=== PATIENT | female | born 2000 | race Caucasian/White ===

== ENCOUNTER 2020-07-21 16:14 | Emergency (ER) | payer SELFPAY ==
--- OUTSIDE RECORDS SUMMARY | 2020-07-21 16:17 | XMS REPORT | Continuity of Care Document ---
:2000 Author Organization [facility] t Address [address] [place] [address] Care Team Providers Name Role Phone Arcadio Baldwin DO Attending Clinician Vls-Lab Attending Clinician Unavailable Clifton Coronado Attending Clinician Problems This patient has no known problems. Allergies, Adverse Reactions, Alerts This patient has no known allergies or adverse reactions. Medications This patient has no known medications. Procedures This patient has no known procedures. Encounters Start End Encounter Admission Attending Care Care Encounter Source Date/Time Date/Time Type Type Clinicians Facility Department ID 2020-06-04 2020-06-04 Patient SARAI Baldwin [id number] 00:00:00 00:00:00 Outreach [place] PR[facility] [id number] Tank CARE [id number] READING [id number] 2020-05-30 2020-05-30 [place] Operator Vls-Lab [facility] [id number] 12:36:03 12:51:03 Visit SPECIALTY [id number] CARE [id number] [facility] [id number] OTILIA HART 2020-05-20 2020-05-20 Office SARAI Lewis [id number] 10:08:13 10:38:13 Visit Masha [facility] [id number] Cancer [id number] [place] - [phone] MDA 204 Results This patient has no known results.
[2020-07-21] MEDS ORDERED: DIPHENHYDRAMINE 50 MG/ML VIAL ONE (17:14)
[2020-07-21] MEDS ORDERED: METHYLPREDNISOLONE 125 MG INJ ONE (17:14)
[2020-07-21] MEDS ORDERED: NA CHLORIDE 0.9% 1,000 ML ONE (17:15)
[2020-07-21] MEDS ORDERED: predniSONE 20 MG TAB ONE (17:15)
[2020-07-21] MEDS ORDERED: FAMOTIDINE 20 MG/2 ML VIAL IV ONE (17:15)
--- NOTE | 2020-07-21 17:16 | EDPHYS ---
Physician Documentation [facility] Name: Jackie Willis Age: 19 yrs Sex: Female : 2000 Arrival Date: 07/21/2020 Time: 16:17 Bed 2 Private MD: ED Physician Conor Quiles HPI: 07/21 16:52 This 19 yrs old Female presents to ER via Ambulatory with complaints of shannan Allergic Reaction. 16:52 The patient presents with itching. Onset: The symptoms/episode began/occurred just shannan prior to arrival. Associated signs and symptoms: Pertinent positives: light headed. Possible causes: lotin. At home the patient or guardian has treated the symptoms with Benadryl. Severity of symptoms: At their worst the symptoms were mild in the emergency department the symptoms are unchanged. The patient has not experienced similar symptoms in the past. Historical: - Allergies: 16:38 No Known Allergies; bp - Home Meds: 16:38 None [Active]; bp - PMHx: 16:38 None; bp - Immunization history:: Adult Immunizations up to date. - Social history:: Smoking status: Patient denies any tobacco usage or history of. ROS: 16:53 Constitutional: Negative for fever, chills, and weight loss, Eyes: Negative for injury, shannan pain, redness, and discharge, ENT: Negative for injury, pain, and discharge, Neck: Negative for injury, pain, and swelling, Cardiovascular: Negative for chest pain, palpitations, and edema, Respiratory: Negative for shortness of breath, cough, wheezing, and pleuritic chest pain, Abdomen/GI: Negative for abdominal pain, nausea, vomiting, diarrhea, and constipation, Back: Negative for injury and pain, : Negative for injury, bleeding, discharge, and swelling, MS/Extremity: Negative for injury and deformity, Neuro: Negative for headache, weakness, numbness, tingling, and seizure, Psych: Negative for depression, anxiety, suicide ideation, homicidal ideation, and hallucinations, Allergy/Immunology: Negative for hives, rash, and allergies, Endocrine: Negative for neck swelling, polydipsia, polyuria, polyphagia, and marked weight changes. 16:53 Skin: Positive for rash. Exam: 16:53 Constitutional: This is a well developed, well nourished patient who is awake, alert, shannan and in no acute distress. Head/Face: Normocephalic, atraumatic. Eyes: Pupils equal round and reactive to light, extra-ocular motions intact. Lids and lashes normal. Conjunctiva and sclera are non-icteric and not injected. Cornea within normal limits. Periorbital areas with no swelling, redness, or edema. ENT: Nares patent. No nasal discharge, no septal abnormalities noted. Tympanic membranes are normal and external auditory canals are clear. Oropharynx with no redness, swelling, or masses, exudates, or evidence of obstruction, uvula midline. Mucous membranes moist. Neck: Trachea midline, no thyromegaly or masses palpated, and no cervical lymphadenopathy. Supple, full range of motion without nuchal rigidity, or vertebral point tenderness. No Meningismus. Chest/axilla: Normal chest wall appearance and motion. Nontender with no deformity. No lesions are appreciated. Cardiovascular: Regular rate and rhythm with a normal S1 and S2. No gallops, murmurs, or rubs. Normal PMI, no JVD. No pulse deficits. Respiratory: Lungs have equal breath sounds bilaterally, clear to auscultation and percussion. No rales, rhonchi or wheezes noted. No increased work of breathing, no retractions or nasal flaring. Abdomen/GI: Soft, non-tender, with normal bowel sounds. No distension or tympany. No guarding or rebound. No evidence of tenderness throughout. Back: No spinal tenderness. No costovertebral tenderness. Full range of motion. Skin: Warm, dry with normal turgor. Normal color with no rashes, no lesions, and no evidence of cellulitis. MS/ Extremity: Pulses equal, no cyanosis. Neurovascular intact. Full, normal range of motion. Neuro: Awake and alert, GCS 15, oriented to person, place, time, and situation. Cranial nerves II-XII grossly intact. Motor strength 5/5 in all extremities. Sensory grossly intact. Cerebellar exam normal. Normal gait. Psych: Awake, alert, with orientation to person, place and time. Behavior, mood, and affect are within normal limits. 16:53 Musculoskeletal/extremity: DVT Exam: No signs of deep vein thrombosis. no pain, no swelling, no tenderness, negative Homans' sign noted on exam, no appreciated bluish discoloration, no erythema, no increased warmth. Vital Signs: 16:36 BP 130 / 86; Pulse 77; Resp 19; Temp 97.4; Pulse Ox 99% ; Weight 83.91 kg; Height 5 ft. bp 7 in. (170.18 cm); 16:36 Body Mass Index 28.97 (83.91 kg, 170.18 cm) bp MDM: 16:44 Patient medically screened. shannan Administered Medications: 17:09 Drug: Pepcid (famotidine) 40 mg Route: IVP; Site: left antecubital; sv 17:59 Follow up: Response: No adverse reaction; Marked relief of symptoms ss 17:09 Drug: SOLU-Medrol (methylPrednisoLONE) 125 mg Route: IVP; Site: left antecubital; sv 17:59 Follow up: Response: No adverse reaction; Marked relief of symptoms ss 17:09 Drug: predniSONE 40 mg Route: PO; sv 17:58 Follow up: Response: No adverse reaction; Marked relief of symptoms ss 17:10 Drug: NS 0.9% 1000 ml Route: IV; Rate: 1 bolus; Site: left antecubital; sv 17:59 Follow up: IV Status: Completed infusion; IV Intake: 1000ml ss 17:10 Drug: Benadryl (diphenhydrAMINE) 50 mg Route: IVP; Site: left antecubital; sv 17:59 Follow up: Response: No adverse reaction; Marked relief of symptoms ss Disposition: 07/21/20 17:15 Discharged to Home. Impression: Allergic contact dermatitis, Allergic contact dermatitis, unspecified cause. - Condition is Stable. - Discharge Instructions: Contact Dermatitis, Rash, Rash, Zrjz-ch-Wemu, Contact Dermatitis, Ccjo-zs-Krve, Allergies, Aurm-ww-Vcue. - Prescriptions for Hydroxyzine HCl 50 mg Oral Tablet - take 1 tablet by ORAL route every 8 hours As needed; 20 tablet. Pepcid 20 mg Oral Tablet - take 1 tablet by ORAL route every 12 hours for 10 days; 20 tablet. Prednisone 20 mg Oral Tablet - take 2 tablet by ORAL route once daily for 5 days; 10 tablet. EpiPen 0.3 mg Injection auto- injector - inject 1 pen by INTRAMUSCULAR route one time Inject into the outer portion of the thigh, through clothing if necessary. Indicated in the emergency treatment of allergic reactions; 1 Cartridge. - Medication Reconciliation Form, Thank You Letter, Antibiotic Education, Prescription Opioid Use, Work release form, Family Work Release form. - Follow up: Private Physician; When: 1 - 2 days; Reason: Recheck today's complaints, Continuance of care, Re-evaluation by your physician. - Problem is new. - Symptoms have improved. Signatures: Bisi Carrizales, RN RN Conor Bar MD MD cha Smirch, Shelby, RN RN ss Enoc Chacon RN RN bp Corrections: (The following items were deleted from the chart) 17:58 17:15 07/21/2020 17:15 Discharged to Home. Impression: Allergic contact dermatitis; ss Allergic contact dermatitis, unspecified cause. Condition is Stable. Discharge Instructions: Contact Dermatitis, Rash, Rash, Upcv-vl-Qhil, Contact Dermatitis, Jcvm-ic-Rymt, Allergies, Esai-zh-Wpnk. Prescriptions for Hydroxyzine HCl 50 mg Oral Tablet - take 1 tablet by ORAL route every 8 hours As needed; 20 tablet, Pepcid 20 mg Oral Tablet - take 1 tablet by ORAL route every 12 hours for 10 days; 20 tablet, Prednisone 20 mg Oral Tablet - take 2 tablet by ORAL route once daily for 5 days; 10 tablet, EpiPen 0.3 mg Injection auto-injector - inject 1 pen by INTRAMUSCULAR route one time Inject into the outer portion of the thigh, through clothing if necessary. Indicated in the emergency treatment of allergic reactions; 1 Cartridge. and Forms are Medication Reconciliation Form, Thank You Letter, Antibiotic Education, Prescription Opioid Use. Follow up: Private Physician; When: 1 - 2 days; Reason: Recheck today's complaints, Continuance of care, Re-evaluation by your physician. Problem is new. Symptoms have improved. shannan
--- NOTE | 2020-07-21 17:16 | ER ---
Nurse's Notes [facility] Name: Jackie Willis Age: 19 yrs Sex: Female : 2000 Arrival Date: 07/21/2020 Time: 16:17 Bed 2 Private MD: Diagnosis: Allergic contact dermatitis;Allergic contact dermatitis, unspecified cause Presentation: 07/21 16:36 Chief complaint: Patient states: GLOBAL URTICARIA AFTER USING NEW LOTION. Coronavirus bp screen: At this time, the client does not indicate any symptoms associated with coronavirus-19. Ebola Screen: No symptoms or risks identified at this time. Onset: The symptoms/episode began/occurred suddenly, 30 minute(s) ago. Anaphylaxis evaluation, no signs or symptoms of anaphylaxis were noted. Initial Sepsis Screen: Does the patient meet any 2 criteria? No. Patient's initial sepsis screen is negative. Does the patient have a suspected source of infection? No. Patient's initial sepsis screen is negative. Risk Assessment: Do you want to hurt yourself or someone else? Patient reports no desire to harm self or others. Onset of symptoms was July 21, 2020 at 16:00. 16:36 Method Of Arrival: Ambulatory bp 16:36 Acuity: LESTER 3 bp Triage Assessment: 16:38 General: Appears distressed, uncomfortable, Behavior is cooperative, appropriate for bp age, anxious. Pain: Denies pain. EENT: No deficits noted. Neuro: Level of Consciousness is awake, alert, obeys commands, Oriented to Appropriate for age. Cardiovascular: No deficits noted. Respiratory: Airway is patent Respiratory effort is even, unlabored, Respiratory pattern is regular, symmetrical. GI: No signs and/or symptoms were reported involving the gastrointestinal system. : No signs and/or symptoms were reported regarding the genitourinary system. Derm: No deficits noted. Musculoskeletal: No deficits noted. Historical: - Allergies: 16:38 No Known Allergies; bp - Home Meds: 16:38 None [Active]; bp - PMHx: 16:38 None; bp - Immunization history:: Adult Immunizations up to date. - Social history:: Smoking status: Patient denies any tobacco usage or history of. Screenin:41 Abuse screen: Denies threats or abuse. Denies injuries from another. Nutritional sv screening: No deficits noted. Tuberculosis screening: No symptoms or risk factors identified. Fall Risk None identified. Assessment: 17:07 General: Appears in no apparent distress. uncomfortable, well groomed, well developed, sv Behavior is cooperative, restless. Pain: Denies pain. Neuro: Level of Consciousness is awake, alert, obeys commands, Oriented to person, place, time, situation, Moves all extremities. Full function Gait is steady, Speech is normal. Respiratory: Airway is patent Respiratory effort is even, unlabored, Respiratory pattern is regular, symmetrical. Derm: Skin is Pt has a sunburn all over her body. Pt placed new lotion on her sunburn to help ease the pain and then started having a reaction to it. She took a couple of baths with no relief. Musculoskeletal: Range of motion: intact in all extremities. 17:45 Reassessment: Patient appears in no apparent distress at this time. Patient and/or ss family updated on plan of care and expected duration. Pain level reassessed. Patient is alert, oriented x 3, equal unlabored respirations, skin warm/dry/pink. Patient denies pain at this time. Patient states feeling better. Patient states symptoms have improved. Respiratory: Respiratory effort is even, unlabored. Vital Signs: 16:36 BP 130 / 86; Pulse 77; Resp 19; Temp 97.4; Pulse Ox 99% ; Weight 83.91 kg; Height 5 ft. bp 7 in. (170.18 cm); 16:36 Body Mass Index 28.97 (83.91 kg, 170.18 cm) bp ED Course: 16:17 Patient arrived in ED. bg2 16:38 Triage completed. bp 16:38 Arm band placed on. bp 16:41 Bisi Carrizales, RN is Primary Nurse. sv 16:41 Patient has correct armband on for positive identification. Bed in low position. Call sv light in reach. Door closed. Head of bed elevated. 16:44 Conor Quiles MD is Attending Physician. shannan 17:07 Inserted saline lock: 20 gauge in left antecubital area, using aseptic technique. sv Flushed left antecubital with 2 ml normal saline. 17:57 No provider procedures requiring assistance completed. IV discontinued, intact, ss bleeding controlled, No redness/swelling at site. Pressure dressing applied. Administered Medications: 17:09 Drug: Pepcid (famotidine) 40 mg Route: IVP; Site: left antecubital; sv 17:59 Follow up: Response: No adverse reaction; Marked relief of symptoms ss 17:09 Drug: SOLU-Medrol (methylPrednisoLONE) 125 mg Route: IVP; Site: left antecubital; sv 17:59 Follow up: Response: No adverse reaction; Marked relief of symptoms ss 17:09 Drug: predniSONE 40 mg Route: PO; sv 17:58 Follow up: Response: No adverse reaction; Marked relief of symptoms ss 17:10 Drug: NS 0.9% 1000 ml Route: IV; Rate: 1 bolus; Site: left antecubital; sv 17:59 Follow up: IV Status: Completed infusion; IV Intake: 1000ml ss 17:10 Drug: Benadryl (diphenhydrAMINE) 50 mg Route: IVP; Site: left antecubital; sv 17:59 Follow up: Response: No adverse reaction; Marked relief of symptoms ss Intake: 17:59 IV: 1000ml; Total: 1000ml. ss Outcome: 17:15 Discharge ordered by MD. campbell 17:57 Discharged to home ambulatory, with family. ss 17:57 Condition: good 17:57 Discharge instructions given to patient, family, Instructed on discharge instructions, follow up and referral plans. medication usage, Demonstrated understanding of instructions, follow-up care, medications, Prescriptions given X 4. 17:58 Patient left the ED. ss Signatures: Bisi Carrizales, RN Conor Penaloza MD MD cha Smirch, Shelby, RN RN ss Glass, Brittany [facility] Enoc Chacon RN RN bp
[2020-07-21 18:05] VITALS: BP 130/86; TEMP 97.4; O2SAT 99
== END 2020-07-21 17:58 | disposition home or self-care (01) ==
LOC: ER 16:14
DX: L23.9 Allergic contact dermatitis, unspecified cause (principal)
CPT/HCPCS: 96361; 96374; 96375; 99283; J1200; J2930; J7030; J7512

== ENCOUNTER 2021-06-30 15:36 | Inpatient (IN) | payer OTHER, SELFPAY ==
[2021-06-30] MEDS ORDERED: MECLIZINE HCL 12.5 MG TAB ONE (16:51)
[2021-06-30] MEDS ORDERED: ONDANSETRON 4 MG (ODT) TAB ONE (17:17)
[2021-06-30] MEDS ORDERED: ONDANSETRON 4 MG/2 ML VIAL ONE ×2 (17:52→20:06)
[2021-06-30] MEDS ORDERED: LORazepam 2 MG/ML VIAL ONE (17:52)
[2021-06-30 18:36] LABS: Absolute Lymphocytes (CBC) 2.4 K/uL (0.7-4.9); Hematocrit 35.9 % (36.0-45.0); Lymphocytes % 27.2 % (15.3-44.8); MPV 7.9 fL (7.6-11.3); RBC Red Blood Cell Count 3.95 M/uL (3.86-4.86)
[2021-06-30 18:49] LABS: Potassium 3.8 mmol/L (3.5-5.1)
--- NOTE | 2021-06-30 19:19 | RAD REPORT ---
EXAM DESCRIPTION: CT - Head Brain Wo Cont - 06/30/2021 6:58 pm CLINICAL HISTORY: Dizziness, non-specific Headache, drowsiness COMPARISON: <Comparisons> TECHNIQUE: All CT scans are performed using dose optimization technique as appropriate and may inclu de automated exposure control or mA/KV adjustment according to patient size. FINDINGS: No intracranial hemorrhage, hydrocephalus or extra-axial fluid collection.No areas of brai n edema or evidence of midline shift. The paranasal sinuses and mastoids are clear. The calvarium is intact. IMPRESSION: No acute intracranial abnormality.
[2021-06-30] MEDS ORDERED: DIAZEPAM 10 MG/2 ML INJ SYRINGE ONE (20:06)
--- NOTE | 2021-06-30 20:35 | RAD REPORT ---
EXAM DESCRIPTION: CT - Head angio - 06/30/2021 8:28 pm CLINICAL HISTORY: Dizzy and blurry vision Headache, drowsiness COMPARISON: Head Brain Wo Cont dated 06/30/2021 TECHNIQUE: CT angiography of the head was performed with MIPs. All CT scans are performed using dose optimization technique as appropriate and may include automated exposure control or mA/KV adjustment according to patient size. FINDINGS: No evidence of aneurysm is detected. No flow-limiting stenosis or vascular malformation id entified. Antegrade flow is seen in the vertebral arteries. The vertebral arteries are codominant. The visualized dural venous sinuses are patent. IMPRESSION: No significant flow abnormality is detected.
--- NOTE | 2021-06-30 21:23 | EDPHYS ---
Physician Documentation [facility] Name: Jackie Willis Age: 20 yrs Sex: Female : 2000 Arrival Date: 06/30/2021 Time: 15:38 Bed 8 Private MD: ED Physician Hussein Triana HPI: 06/30 16:46 This 20 yrs old Female presents to ER via Ambulatory with complaints of Blurred Vision, ms3 Nausea. 16:46 The patient presents to the emergency department with nausea. Onset: The ms3 symptoms/episode began/occurred acutely, today. Possible causes: unknown. The symptoms are aggravated by movement, The symptoms are alleviated by nothing. Associated signs and symptoms: Pertinent positives: nausea, Pertinent negatives: vomiting. Severity of symptoms: At their worst the symptoms were moderate in the emergency department the symptoms are unchanged Pain is currently a 3 / 10. Historical: - Allergies: 16:12 No Known Allergies; ph - PMHx: 16:12 Depressive disorder; ph - Immunization history:: Adult Immunizations unknown. - Social history:: Smoking status: Patient denies any tobacco usage or history of. ROS: 16:46 Constitutional: Negative for fever, and chills. Neck: Negative for injury, pain, and ms3 swelling, Cardiovascular: Negative for chest pain, and palpitations. Respiratory: Negative for shortness of breath, cough, wheezing, and pleuritic chest pain, MS/Extremity: Negative for injury and deformity, Skin: Negative for injury, rash, and discoloration. 16:46 Abdomen/GI: Positive for nausea, Negative for vomiting. 16:46 Neuro: Positive for dizziness. 16:46 All other systems are negative. Exam: 16:46 Constitutional: This is a well developed, well nourished patient who is awake, alert, ms3 and in no acute distress. Head/Face: Normocephalic, atraumatic. Neck: Trachea midline, no cervical lymphadenopathy. Supple, full range of motion without nuchal rigidity, or vertebral point tenderness. No Meningismus. Chest/axilla: Normal chest wall appearance and motion. Nontender with no deformity. Cardiovascular: Regular rate and rhythm with a normal S1 and S2. No gallops, murmurs, or rubs. Normal PMI, no JVD. No pulse deficits. Respiratory: Lungs have equal breath sounds bilaterally, clear to auscultation and percussion. No rales, rhonchi or wheezes noted. No increased work of breathing, no retractions or nasal flaring. Abdomen/GI: Soft, non-tender, with normal bowel sounds. No distension or tympany. No guarding or rebound. No evidence of tenderness throughout. MS/ Extremity: Pulses equal, no cyanosis. Neurovascular intact. Full, normal range of motion. Psych: Awake, alert, with orientation to person, place and time. Behavior, mood, and affect are within normal limits. 16:46 Neuro: Orientation: is normal, Mentation: is normal, Memory: is normal, Cranial nerves: grossly normal, Cerebellar function: is grossly normal, Motor: is normal, Sensation: is normal, Positive [place]. 18:31 ECG was reviewed by the Attending Physician. ms3 Vital Signs: 16:10 BP 127 / 78; Pulse 71; Resp 18; Temp 98.1; Pulse Ox 100% on R/A; Weight 88.45 kg; ph Height 5 ft. 7 in. (170.18 cm); 16:41 BP 127 / 74; Pulse 71; Pulse Ox 100% on R/A; ap3 18:38 BP 119 / 87; Pulse 60; Resp 17; Pulse Ox 100% ; Pain 2/10; jh6 21:06 BP 140 / 82; Pulse 63; Resp 16 S; Pulse Ox 99% ; Pain 0/10; ag7 22:00 BP 136 / 98; Pulse 65; Resp 16 S; Pulse Ox 99% on R/A; Pain 0/10; ag7 16:10 Body Mass Index 30.54 (88.45 kg, 170.18 cm) ph Visual Acuity: 21:05 Left Eye Visual acuity 20/50, Pupil size 3 mm, React To Light; Right Eye Visual acuity ag7 20/50, Pupil size 3 mm, React To Light; Both Eyes Visual acuity 20/50; With Lenses; MDM: 16:46 Patient medically screened. ms3 16:46 Differential diagnosis: BPV vs Nausea. ms3 18:22 ED course: Despite Antivert, Zofran, and Ativan patient states she is still having ms3 dizziness. Patient states the counter in the room is sloping. Will obtain CT head and labs.. 19:28 Transition of care: After a detail discussion of the patient's case, care is ms3 transferred to Hussein Triana MD. 21:22 Data reviewed: vital signs, nurses notes, lab test result(s), radiologic studies. kdr Counseling: I had a detailed discussion with the patient and/or guardian regarding: the historical points, exam findings, and any diagnostic results supporting the discharge/admit diagnosis, lab results, radiology results, the need for further work-up and treatment in the hospital. Physician consultation: Chris Terrazas MD regarding consult, patient's condition, and will see patient in inpatient room, tomorrow, Suggested a MRI brain in the a.m.. 06/30 18:22 Order name: Basic Metabolic Panel; Complete Time: 19:05 ms3 06/30 18:22 Order name: CBC with Diff; Complete Time: 19:05 ms3 06/30 18:22 Order name: CT Head Brain wo Cont; Complete Time: 19:35 ms3 06/30 19:51 Order name: CT Head Angio; Complete Time: 20:44 kdr 06/30 22:38 Order name: COVID-19/FLU A+B (Document "Date of Onset" if Symptomatic) mw2 07/01 00:29 Order name: COVID-19/FLU A+B EDMS 06/30 18:22 Order name: EKG; Complete Time: 18:23 ms3 06/30 18:22 Order name: Cardiac monitoring; Complete Time: 18:37 ms3 06/30 18:22 Order name: EKG - Nurse/Tech; Complete Time: 18:46 ms3 06/30 18:22 Order name: IV Saline Lock; Complete Time: 18:37 ms3 06/30 18:22 Order name: Labs collected and sent; Complete Time: 18:37 ms3 06/30 18:22 Order name: NPO; Complete Time: 18:37 ms3 06/30 18:22 Order name: O2 Per Protocol; Complete Time: 18:37 ms3 06/30 18:22 Order name: O2 Sat Monitoring; Complete Time: 18:37 ms3 06/30 18:22 Order name: Stroke Swallow Screen; Complete Time: 18:38 ms3 06/30 19:51 Order name: Visual Acuity; Complete Time: 21:26 kdr EC:31 Rate is 58 beats/min. Rhythm is regular. QRS Covert is Normal. VT interval is normal. ms3 Clinical impression: Sinus bradycardia. Interpreted by me. Administered Medications: 16:51 Drug: Meclizine 50 mg Route: PO; jh6 17:30 Drug: Zofran (Ondansetron) 4 mg Route: PO; jh6 17:55 Drug: Zofran (Ondansetron) 4 mg Route: IVP; Site: right antecubital; jh6 17:56 Drug: Ativan (LORazepam) 1 mg Route: IVP; Site: right antecubital; jh6 20:21 Drug: Valium (diazepam) 5 mg Route: IVP; Site: right antecubital; ag7 20:51 Follow up: Response: No adverse reaction; No change in condition ag7 20:21 Drug: Zofran (Ondansetron) 4 mg Route: IVP; Site: right antecubital; ag7 20:51 Follow up: Response: No adverse reaction; No change in condition ag7 Disposition Summary: 06/30/21 21:22 Hospitalization Ordered Hospitalization Status: Observation kdr Provider: Amol Bauman Location: Telemetry/MedSurg (observation) kdr Condition: Fair kdr Problem: new kdr Symptoms: are unchanged kdr Bed/Room Type: Standard [facility] Room Assignment: 204(07/01/21 00:56) Diagnosis - Vision changes and dizziness kdr Discharge Instructions: - Discharge Summary Sheet ap3 Forms: - Medication Reconciliation Form kdr - SBAR form ap3 Signatures: Dispatcher [employer] Hussein Hopper MD MD kdr Hall, Patricia RN Sveta Nayak ph RN RN Ray Bingham DO DO ms3 Caridad Mariano RN RN jh6 Savi Rubio PA PA sb3 Melida Woo RN RN ag7 Corrections: (The following items were deleted from the chart) 07/01 00:56 06/30 21:22 kdr cg
--- NOTE | 2021-06-30 21:23 | ER ---
Nurse's Notes [facility] Name: Jackie Willis Age: 20 yrs Sex: Female : 2000 Arrival Date: 06/30/2021 Time: 15:38 Bed 8 Private MD: Diagnosis: Vision changes and dizziness Presentation: 06/30 16:10 Chief complaint: Patient states: Headache that started today while studying, states, " ph I have a hx of migraines so I went to lay down and take a nap and when I got up my vision was blurry and the room was spinning." Pt also c/o nausea. Coronavirus screen: Vaccine status: Patient reports being unvaccinated. Ebola Screen: No symptoms or risks identified at this time. Initial Sepsis Screen: Does the patient meet any 2 criteria? No. Patient's initial sepsis screen is negative. Does the patient have a suspected source of infection? No. Patient's initial sepsis screen is negative. Risk Assessment: Do you want to hurt yourself or someone else? Patient reports no desire to harm self or others. Onset of symptoms was June 30, 2021. 16:10 Method Of Arrival: Ambulatory 16:10 Acuity: LESTER 3 ph Triage Assessment: 16:12 General: Appears in no apparent distress. Behavior is calm, cooperative, appropriate ph for age. Pain: Complains of pain in occipital area. Neuro: Reports blurred vision dizziness, headache. GI: Reports nausea. Historical: - Allergies: 16:12 No Known Allergies; ph - PMHx: 16:12 Depressive disorder; ph - Immunization history:: Adult Immunizations unknown. - Social history:: Smoking status: Patient denies any tobacco usage or history of. Screenin:20 Abuse screen: Denies threats or abuse. Nutritional screening: No deficits noted. jh6 Tuberculosis screening: No symptoms or risk factors identified. Fall Risk None identified. Assessment: 16:19 General: Appears in no apparent distress. Behavior is calm, cooperative. Pain: 6 Complains of pain in face and scalp Pain currently is 3 out of 10 on a pain scale. Quality of pain is described as dull, Pain began suddenly, 4 hours ago. Neuro: No deficits noted. Level of Consciousness is awake, alert, obeys commands, Oriented to person, place, time, situation, [place] are equal bilaterally Reports blurred vision in iris of right eye and iris of left eye dizziness. GI: Abdomen is flat, non-distended, Reports nausea. 17:56 Reassessment: Patient and/or family updated on plan of care and expected duration. Pain jh6 level reassessed. Patient is alert, oriented x 3, equal unlabored respirations, skin warm/dry/pink. pt reports that the dizziness is not better and is feeling nauseated still , iv started and meds given . 18:22 Reassessment: Patient is alert, oriented x 3, equal unlabored respirations, skin jh6 warm/dry/pink. no change in dizziness with meds given, no longer as nauseated. 19:00 Reassessment: Patient and/or family updated on plan of care and expected duration. Pain ag7 level reassessed. Patient is alert, oriented x 3, equal unlabored respirations, skin warm/dry/pink. The patient continue to complain of vertigo Patient denies pain at this time. 20:00 Reassessment: No changes from previously documented assessment. ag7 21:00 Reassessment: No changes from previously documented assessment. ag7 Vital Signs: 16:10 BP 127 / 78; Pulse 71; Resp 18; Temp 98.1; Pulse Ox 100% on R/A; Weight 88.45 kg; ph Height 5 ft. 7 in. (170.18 cm); 16:41 BP 127 / 74; Pulse 71; Pulse Ox 100% on R/A; ap3 18:38 BP 119 / 87; Pulse 60; Resp 17; Pulse Ox 100% ; Pain 2/10; jh6 21:06 BP 140 / 82; Pulse 63; Resp 16 S; Pulse Ox 99% ; Pain 0/10; ag7 22:00 BP 136 / 98; Pulse 65; Resp 16 S; Pulse Ox 99% on R/A; Pain 0/10; ag7 16:10 Body Mass Index 30.54 (88.45 kg, 170.18 cm) ph Visual Acuity: 21:05 Left Eye Visual acuity 20/50, Pupil size 3 mm, React To Light; Right Eye Visual acuity ag7 20/50, Pupil size 3 mm, React To Light; Both Eyes Visual acuity 20/50; With Lenses; ED Course: 15:38 Patient arrived in ED. ds1 16:04 Ray Bingham DO is Attending Physician. ms3 16:12 Triage completed. ph 16:12 Arm band placed on Patient placed in an exam room. ph 16:15 Caridad Mariano, RN is Primary Nurse. jh6 16:21 Bed in low position. Call light in reach. Side rails up X 1. Adult w/ patient. jh6 17:00 Oxygen administration via nasal cannula \\T\\ 2L/min. jh6 17:45 Inserted saline lock: 22 gauge in right antecubital area, using aseptic technique. jh6 18:38 Initial lab(s) drawn, by ok, sent to lab. EKG done. jh6 19:00 CT Head Brain wo Cont In Process Unspecified. EDMS 19:29 Attending Physician role handed off by Ray Bingham DO kdr 19:29 Hussein Triana MD is Attending Physician. kdr 20:21 Inserted saline lock: 22 gauge in left antecubital area, using aseptic technique. ag7 ,using aseptic technique. flushed with NS 10 ml IV is patent, is intact, with fluids infusing freely, with good blood return. 20:29 CT Head Angio In Process Unspecified. EDMS 21:21 Amol Bauman MD is Hospitalizing Provider. kdr 21:41 Primary Nurse role handed off by Caridad Mariano RN 2 22:19 Aminta Hernandez RN is Primary Nurse. [facility] 07/01 01:08 COVID-19/FLU A+B (Document "Date of Onset" if Symptomatic) Sent. ag7 01:35 No provider procedures requiring assistance completed. ag7 01:36 Patient admitted, IV remains in place. ag7 Administered Medications: 06/30 16:51 Drug: Meclizine 50 mg Route: PO; jh6 17:30 Drug: Zofran (Ondansetron) 4 mg Route: PO; jh6 17:55 Drug: Zofran (Ondansetron) 4 mg Route: IVP; Site: right antecubital; jh6 17:56 Drug: Ativan (LORazepam) 1 mg Route: IVP; Site: right antecubital; jh6 20:21 Drug: Valium (diazepam) 5 mg Route: IVP; Site: right antecubital; ag7 20:51 Follow up: Response: No adverse reaction; No change in condition ag7 20:21 Drug: Zofran (Ondansetron) 4 mg Route: IVP; Site: right antecubital; ag7 20:51 Follow up: Response: No adverse reaction; No change in condition ag7 Outcome: 21:22 Decision to Hospitalize by Provider. kdr 07/01 01:36 Admitted to Med/surg accompanied by tech, via stretcher, room 204, with chart, Report ag7 called to Whitley RN \\T\\ [id number] Condition: stable 01:37 Patient left the ED. ag7 Signatures: Dispatcher [employer] EDMS Hussein Triana MD MD kdr Sanford, Demi ds1 Mary Colunga RN RN ph Maris Ortiz, RN RN ap3 Jericho Quarles mw2 Ray Bingham, DO [place] ms3 Caridad Mariano RN RN jh6 Aminta Hernandez RN RN sm5 Melida Woo RN RN ag7
--- NOTE | 2021-06-30 22:01 | P.HP ---
Certification for Inpatient Patient admitted to: Observation With expected LOS: <2 Midnights Patient will require the following post-hospital care: None Practitioner: I am a practitioner with admitting privileges, knowledge of patient current condition, hospital course, and medical plan of care. Services: Services provided to patient in accordance with Admission requirements found in Title 42 Section 412.3 of the Code of Federal Regulations Patient History Date of Service: 06/30/21 Reason for admission: Dizziness History of Present Illness: Patient is a 20-year-old female with past medical history of migraines who presented to the ED today with complaints of dizziness and double vision. She states she woke up from a nap around 1400 and felt very dizzy and was experiencing double vision. She denies any episodes of this happening previously. In the ED, she could not tolerate p.o. meclizine or Zofran. Justin- Hallpike maneuver was attempted twice, and patient immediately vomited. CT head and CTA head negative. Labs within normal limits. Patient was given IV Zofran, IV Ativan, IV Valium with some improvement in symptoms. Dr. Terrazas has been consulted and wishes for patient to be admitted for observation with MRI of the brain in the morning. Upon my assessment, patient reports that her nausea has improved. She states that she still experiencing some dizziness, but it has also improved some. Vital signs stable. Home medications list reviewed: Yes - Past Medical/Surgical History Diabetic: No -: Migraines -: Depression Past Surgical History: Patient denies surgical history Psychosocial/ Personal History: Patient is in nursing school. - Family History Father -: Hypertension, Other (see notes) (myasthenia gravis) Mother -: Hypertension - Social History Smoking Status: Never smoker Alcohol use: Yes CD- Drugs: No Caffeine use: Yes Place of Residence: Home Review of Systems Gastrointestinal: Nausea, Vomiting Neurological: Other (changes in vision), As per HPI Physical Examination - Physical Exam General: Alert, In no apparent distress, Oriented x3 HEENT: Atraumatic, PERRLA, Mucous membr. moist/pink, EOMI, Sclerae nonicteric Neck: Supple, 2+ carotid pulse no bruit, No LAD, Without JVD or thyroid abnormality Respiratory: Clear to auscultation bilaterally, Normal air movement Cardiovascular: Regular rate/rhythm, Normal S1 S2 Gastrointestinal: Normal bowel sounds, No tenderness Musculoskeletal: No tenderness Integumentary: No rashes Neurological: Normal gait, Normal speech, Normal strength at 5/5 x4 extr, Normal tone, Sensation intact, Cranial nerves 3-12 intact, Normal reflexes 2+, Normal affect - Studies Laboratory Data (last 24 hrs) 06/30/21 18:29: WBC 9.0, Hgb 12.4, Hct 35.9 L, Plt Count 272 06/30/21 18:29: Sodium 138, Potassium 3.8, BUN 11, Creatinine 0.87, Glucose 93 Assessment and Plan - Problems (Diagnosis) (1) Dizziness Current Visit: Yes Status: Acute (2) Changes in vision Current Visit: Yes Status: Acute (3) Nausea and vomiting Current Visit: Yes Status: Acute Qualifiers: Vomiting type: unspecified Qualified Code(s): R11.2 - Nausea with vomiting, unspecified - Plan Full liquid diet as tolerated with IV Zofran and Valium as needed. IV fluids at 100 cc an hour overnight. Dr. Terrazas consulted. MRI brain ordered for the morning. Lovenox for DVT prophylaxis. Discharge Plan: Home Plan to discharge in: 24 Hours - Advance Directives Does patient have a Living Will: No Does patient have a Durable POA for Healthcare: No - Code Status/Comfort Care Code Status Assessed: Yes (Full) Critical Care: No Time Spent Managing Pts Care (In Minutes): 55
[2021-07-01 00:29] LABS: SARS-COV-2 RT PCR NEGATIVE (NEGATIVE)
[2021-07-01] MEDS ORDERED: DIAZEPAM 10 MG/2 ML INJ SYRINGE IV PRN (01:46)
[2021-07-01] MEDS: NA CHLORIDE 0.9% 1,000 ML IV SCH ×3 (02:18→20:59)
[2021-07-01 03:04] LABS: Urine Appearance CLEAR (Clear); Urine Bilirubin NEGATIVE (Negative); Urine Blood NEGATIVE (Negative); Urine Color YELLOW (Yellow); Urine Glucose NEGATIVE (Negative); Urine Protein NEGATIVE (Negative); Urine Specific Gravity >=1.030 (1.005-1.030)
[2021-07-01 03:06] LABS: Urine Microscopic Reflex NO UMIC
[2021-07-01 06:20] VITALS: O2SAT 99
[2021-07-01] MEDS: ENOXAPARIN 40 MG/0.4 ML SQ SCH (08:42)
[2021-07-01] MEDS: ACETAMINOPHEN 500 MG TAB PO PRN ×2 (08:43→20:59)
[2021-07-01] MEDS: ONDANSETRON 4 MG/2 ML VIAL IV PRN ×3 (08:43→18:00)
--- NOTE | 2021-07-01 09:09 | RAD REPORT ---
EXAM DESCRIPTION: MRI - MRA Head Wo Cont - 07/01/2021 8:21 am CLINICAL HISTORY: dizziness CVA COMPARISON: Head angio dated 06/30/2021 FINDINGS: 3D noncontrast [id number] MR angiography of the lower [place] was performed. No aneurysm, flow-limiting stenosis or vascular malformation is seen. Forward flow seen in codominant vertebral arteries. The visualized dural venous sinuses appear patent. IMPRESSION: No significant flow abnormality of the [place] is identified.
[2021-07-01] MEDS ORDERED: MECLIZINE HCL 12.5 MG TAB PO ONE ×2 (11:30→12:19)
[2021-07-01] MEDS ORDERED: HYDROCORTISONE SUC 100 MG INJ IV ONE (15:24)
[2021-07-01] MEDS ORDERED: TOPIRAMATE 25 MG TAB PO ONE (15:24)
--- NOTE | 2021-07-01 18:23 | P.PN ---
Subjective Date of Service: 07/01/21 Patient having a hard time seeing; her vision is very poor and she is not able to make out any words. She is still having nausea and vomiting; she is having a headache. She is drifting to the side as well. She will be given stat MRI of the soft tissue of the brain with contrast. MRA was negative Review of Systems 10-point ROS is otherwise unremarkable Physical Examination - Vital Signs Temperature: 97.9 F Blood Pressure: 118/69 Pulse: 72 Respirations: 18 Pulse Ox (%): 98 - Physical Exam General: Alert, In no apparent distress, Oriented x3 HEENT: Other (unable to really read any words) Respiratory: Clear to auscultation bilaterally, Normal air movement Cardiovascular: Regular rate/rhythm, Normal S1 S2 Gastrointestinal: Normal bowel sounds, Soft and benign, Non-distended, No tenderness Musculoskeletal: No clubbing, No swelling, No tenderness Integumentary: No rashes Neurological: Sensation intact, Abnormal gait, Abnormal strength, Abnormal cranial nerve function Lymphatics: No axilla or inguinal lymphadenopathy - Studies Laboratory Data (last 24 hrs) 06/30/21 18:29: WBC 9.0, Hgb 12.4, Hct 35.9 L, Plt Count 272 06/30/21 18:29: Sodium 138, Potassium 3.8, BUN 11, Creatinine 0.87, Glucose 93 Medications List Reviewed: Yes Assessment & Plan - Problems (Diagnosis) (1) Poor vision Current Visit: Yes Status: Acute (2) Vertigo Current Visit: Yes Status: Acute (3) Ataxia Current Visit: Yes Status: Acute (4) Changes in vision Current Visit: Yes Status: Acute (5) Nausea and vomiting Current Visit: Yes Status: Acute Qualifiers: Vomiting type: unspecified Qualified Code(s): R11.2 - Nausea with vomiting, unspecified - Plan stat MRI of the brain with contrast - Advance Directives Does patient have a Living Will: No Does patient have a Durable POA for Healthcare: No
--- NOTE | 2021-07-01 19:18 | RAD REPORT ---
EXAM DESCRIPTION: MRI - Brain W/Wo Cont - 07/01/2021 7:10 pm CLINICAL HISTORY: dizziness/diplopia COMPARISON: MRA Head Wo Cont dated 07/01/2021 TECHNIQUE: Sagittal and axial T1-weighted images were obtained. Axial PD/heavily T2-weighted and T2- FLAIR images were obtained along with axial DWI/ADC mapping sequences. Coronal heavily T2 weighted s equence obtained. Axial and coronal post-contrast T1-weighted images were also obtained. Sagittal 3D FLAIR sequence obtained. A 20 ml Multihance contrast following utilized. FINDINGS: No intracranial hemorrhage, mass or acute infarction. There is no edema or shift of midli ne structures. No extra-axial fluid collections. Pina-matter/white matter junction is preserved. Sig nal voids are seen as a normal finding in the major intracranial vessels. No volume loss present. Ernst tricles are normal. No signal abnormality in the cerebral white matter. No large mass in either inter nal auditory canal. Post-contrast images show no abnormal brain parenchymal or dural enhancement. No brainstem or upper c ervical cord signal abnormalities. Mastoid air cells and paranasal sinuses are clear. IMPRESSION: Negative contrast enhanced MRI of the Brain. No MRI findings of MS or other significant intracranial process.
--- NOTE | 2021-07-01 23:21 | CON ---
Reason For Consultation: Consultation called because of vertigo with nausea and vomiting. History Of Present Illness: Ms. Willis is a 20-year-old right-handed patient with migraine, who comes to [facility] with severe reported dizziness, nausea, vomiting, blurred vision and double v ision. Symptoms occurred yesterday around 2 p.m. after she woke up from a nap. She felt dizzy as th ough things were moving around, had double vision. As she tried to sit up and get up, she developed severe nausea and had vomiting. She came to [facility], unable to tolerate anything by mout h. She had severe nausea and Justin-Hallpike maneuver was attempted twice, but she had significant vomi ting and vertigo. Her CT scan and CT angiogram of the head were negative. MRA of the head also nega tive. No evidence of any abnormality in the vessels or stroke. She had no focal deficits throughout this event. She received IV Zofran, Ativan, and Valium and symptoms improved moderately. The , which was when I saw her, she did have 1 episode of vomiting earlier, but she was able to k eep her lunch down and was able to get up and go to the bathroom and had dizziness, but it was improv ed. She denies prior history of vertigo. No recent infections or sick contacts. COVID testing was negat judy. No history of stroke, head trauma, or loss of consciousness. No alcohol or drug abuse history. Past Medical History: As noted above, migraine and depression. Medications: No regular medications at home. Family History: Positive for hypertension and myasthenia gravis in father and hypertension in mother . Social History: Occasional alcohol and caffeinated beverages. No tobacco or illegal drugs. Review of Systems: As mentioned, nausea, vomiting, blurred vision, double vision, and maintaining upright position due t o nausea and vomiting, which has improved. Physical Examination: Vital Signs: Blood pressure 118/69, pulse 72, respiratory rate 18, temperature 97.9, O2 saturation 9 8% on room air. General: Ms. Willis is resting in bed. She finished lunch. She has no significant distress. HEENT: She is normocephalic, atraumatic. Her sclerae are anicteric. Oropharynx is moist and pink. Neck: Supple. Chest: Clear. Heart: Regular. Extremities: Show no clubbing, cyanosis, or edema. Neurological: She is alert and oriented to person, place, situation and follows all commands appropr iately. Cranial nerves 2-12 are intact by exam. On motor examination, normal tone in the arms and l egs, 5/5 proximally and distally in terms of strength. Sensation intact to upper and lower extremiti es. Coordination intact in the upper and lower extremities. Reflexes 2+ in upper and lower extremit ies and symmetric. On gait she has good stance, arm swing, and stride length. Mild dizziness while standing. Laboratory Studies: Complete blood count with differential is normal. Basic metabolic panel normal. Urinalysis normal. Influenza A and B and COVID-19 testing are all negative. Assessment: Ms. Willis is a 20-year-old patient with positional vertigo. She does not have any obvio us infectious cause. No recent trauma and no stroke on imaging and vessels in head are unremarkable. Plan: 1.May perform Maryanne maneuver as needed. 2.Scopolamine patch on the right ear may be done as needed for 2 weeks. 3.She may be discharged home and follow up in Dr. Terrazas's clinic in 1 month. FLORIAN/JUAN F Voice ID: [id number] Report ID: [id number]
[2021-07-02] MEDS: NA CHLORIDE 0.9% 1,000 ML IV SCH (07:09)
--- NOTE | 2021-07-02 08:11 | EKG ---
Test Date: 2021-06-30 Test Time: 18:31:42 [employer] Registrar: MIKAELA MEASUREMENT RESULTS: Intervals: Rate: 58 NJ: 124 QRSD: 76 QT: 432 QTc: 424 [place]: P: 29 NJ: 124 QRS: 65 T: 42 INTERPRETIVE STATEMENTS: Sinus bradycardia Otherwise normal ECG No previous ECG available for comparison Electronically Signed On 07-02-21 08:07:17 CDT by Manoj Monique
[2021-07-02] MEDS: ENOXAPARIN 40 MG/0.4 ML SQ SCH (08:35)
[2021-07-02] MEDS: ACETAMINOPHEN 500 MG TAB PO PRN (08:35)
[2021-07-02 12:47] VITALS: BP 121/58; TEMP 97.8
== END 2021-07-02 15:45 | disposition home or self-care (01) | DRG 149 ==
LOC: ER 15:36 → ERHOLD 22:09 → 2ND 07-01 01:24 → OBSVTOIN 07-01 18:20
PROVIDERS: ADMIT Hospitalist; ATTEND Hospitalist
DX: R42 Dizziness and giddiness (principal); G43.909 Migraine, unspecified, not intractable, without status migrainosus; R11.2 Nausea with vomiting, unspecified; H53.9 Unspecified visual disturbance; F32.A Depression, unspecified; Z82.49 Family history of ischemic heart disease and other diseases of the circulatory system; Z20.822 Contact with and (suspected) exposure to COVID-19
CPT/HCPCS: 0240U; 36415; 70450; 70496; 70544; 70553; 80048; 81003; 85025; 93005; 96374; 96375; 99285; A9577; G0378; J1650; J1720; J2405; J3360; J7030; J8597; Q9967

== ENCOUNTER → 2023-04-09 | Emergency (ER) | payer SELFPAY ==
[~2023-04-09] MED LIST: MORPHINE 4 MG/ML SYR ONE; NA CHLORIDE 0.9% 1,000 ML ONE; ONDANSETRON 4 MG/2 ML VIAL ONE
[2023-04-09 08:39] LABS: Absolute Lymphocytes (CBC) 1.9 K/uL (0.7-4.9); Hematocrit 38.4 % (36.0-45.0); MCV 91.3 fL (80-100); MPV 7.9 fL (7.6-11.3); Platelets 287 thou/uL (152-406)
[2023-04-09 08:54] LABS: Albumin 4.4 g/dL (3.4-5.0); Bilirubin Total 0.7 mg/dL (0.2-1.0); Potassium 3.9 mEq/L (3.5-5.1); Protein, Total 8.3 g/dL (6.4-8.2)
[2023-04-09 09:24] LABS: Urine Bacteria None Seen /HPF (<20); Urine Bilirubin NEGATIVE (Negative); Urine Blood Negative (Negative); Urine Clarity Extremely Turbid (Clear); Urine Color Light-Yellow (Yellow); Urine Glucose NEGATIVE (Negative); Urine Protein NEGATIVE (Negative); Urine RBC <5 /HPF (None Seen); Urine Urobilinogen Normal (Normal)
--- NOTE | 2023-04-09 10:06 | RAD REPORT ---
EXAM DESCRIPTION: CT - Abdomen Pelvis W Contrast - 04/09/2023 9:38 am CLINICAL HISTORY: ABD PAIN COMPARISON: No comparisons TECHNIQUE: Thin cut axial CT imaging of the abdomen and pelvis was performed following intravenous a dministration of 100 mL Isovue 300. Multiplanar reformats were generated and reviewed. All CT scans are performed using dose optimization technique as appropriate and may include automated exposure control or mA/KV adjustment according to patient size. FINDINGS: No suspicious findings in the lung bases. The liver, spleen, adrenal glands, and pancreas show no suspicious findings. Gallbladder and biliary tree are also without suspicious finding. Symmetric renal function is seen with no hydronephrosis or suspicious renal mass. No dilated bowel loops or bowel wall thickening. No free air, free fluid or inflammatory stranding. N o hernia, mass or bulky lymphadenopathy. The urinary bladder is without significant finding. Some flu id in the right aspect of the pelvis with crescentic enhancement, may relate to a ruptured cyst. No suspicious bony findings. IMPRESSION: No acute intra-abdominal process. Findings that may suggest a right ruptured adnexal cyst. Please correlate clinically.
--- NOTE | 2023-04-09 12:34 | RAD REPORT ---
EXAM DESCRIPTION: US - Transvaginal Study Probe - 04/09/2023 12:05 pm CLINICAL HISTORY: ABD PAIN COMPARISON: No comparisons TECHNIQUE: Sonographic grayscale and color flow images of the pelvis were obtained. FINDINGS: The uterus is normal in size, shape and echotexture. The uterus measures 7.6 cm in length. Few nabothian cysts noted along the cervix. The endometrial stripe is echogenic, measures 11 mm in thickness. Both ovaries are normal in size, shape and echotexture. The right ovary measures 4.8 x 2.8 x 2.5 cm. The left ovary measures 4.3 x 2.2 x 2.9 cm. Bilateral ovarian cysts and follicles, including a foll icle with mild wall calcification on the left. No suspicious adnexal masses. Normal Doppler blood flow was demonstrated to both ovaries. Moderate amount of free fluid noted in the cul-de-sac, as well as in the right more than left adnexal region. IMPRESSION: Essentially unremarkable sonographic appearance of the uterus and ovaries. Moderate amount of free fluid in the cul-de-sac as well as in the right more than left adnexal region s. This could be physiologic or related to rupture of a dominant cyst or follicle, among other consid erations.
--- NOTE | 2023-04-09 12:51 | EDPHYS ---
Physician Documentation [facility] Name: Jackie Toth Age: 22 yrs Sex: Female : 2000 Arrival Date: 04/09/2023 Time: 08:06 Bed 13 Private MD: ED Physician Ray Bingham HPI: 04/09 09:27 This 22 yrs old Female presents to ER via Ambulatory with complaints of Abdominal Pain. ms3 09:27 22-year-old female with past medical history of depression, hypercholesterolemia, ms3 pseudotumor cerebri presents to the emergency department for right lower quadrant abdominal pain that began at 4 PM around her navel. Patient states the pain is currently an 8/10 and worse with walking. Patient denies any alleviating factors. Patient endorses nausea. Patient denies vomiting. Historical: - Allergies: 08:17 PENICILLINS; ll1 - PMHx: 08:17 depressive disorder; Hypercholesterolemia; pseudo tumor cerebri; ll1 - PSHx: 08:17 None; ll1 - Immunization history:: Adult Immunizations up to date. - Social history:: Smoking status: Reported history of juuling and/or vaping. ROS: 09:27 Constitutional: Negative for fever, and chills. Neck: Negative for injury, pain, and ms3 swelling, Cardiovascular: Negative for chest pain, and palpitations. Respiratory: Negative for shortness of breath, cough, wheezing, and pleuritic chest pain, 09:27 Abdomen/GI: Positive for abdominal pain, vomiting, 09:27 All other systems are negative, Exam: 09:27 Constitutional: This is a well developed, well nourished patient who is awake, alert, ms3 and in no acute distress. Head/Face: Normocephalic, atraumatic. Neck: Trachea midline, no cervical lymphadenopathy. Supple, full range of motion without nuchal rigidity, or vertebral point tenderness. No Meningismus. Chest/axilla: Normal chest wall appearance and motion. Nontender with no deformity. Cardiovascular: Regular rate and rhythm with a normal S1 and S2. No gallops, murmurs, or rubs. Normal PMI, no JVD. No pulse deficits. Respiratory: Lungs have equal breath sounds bilaterally, clear to auscultation and percussion. No rales, rhonchi or wheezes noted. No increased work of breathing, no retractions or nasal flaring. 09:27 Abdomen/GI: Inspection: abdomen appears normal, Bowel sounds: normal, Palpation: moderate abdominal tenderness, in the right lower quadrant, voluntary guarding, is elicited in the right lower quadrant, Vital Signs: 08:17 BP 130 / 98; Pulse 90; Resp 16; Temp 98.6; Pulse Ox 100% on R/A; Weight 77.11 kg; ll1 Height 5 ft. 8 in. ; Pain 8/10; 09:20 BP 120 / 79; Pulse 82; Resp 18; Pulse Ox 100% on R/A; mb9 11:21 BP 117 / 84; Pulse 84; Resp 18; Pulse Ox 100% on R/A; mb9 12:52 BP 116 / 74; Pulse 63; Resp 18; Pulse Ox 96% on R/A; me1 08:17 Body Mass Index 25.85 (77.11 kg, 172.72 cm) ll1 08:17 Pain Scale: Adult ll1 MDM: 08:22 Patient medically screened. ms3 09:31 Differential diagnosis: appendicitis, bowel obstruction, non-specific abd pain, Ovarian ms3 Torsion. 12:50 Data reviewed: vital signs, nurses notes, lab test result(s), radiologic studies, CT ms3 scan, ultrasound, and as a result, I will discharge patient. I considered the following discharge prescriptions or medication management in the emergency department Medications were administered in the Emergency Department. See MAR. Care significantly affected by the following chronic conditions: Hyperlipidemia, pseudotumor cerebri, depression. Counseling: I had a detailed discussion with the patient and/or guardian regarding the historical points, exam findings, and any diagnostic results supporting the discharge/admit diagnosis, lab results, radiology results, the need for outpatient follow up, to return to the emergency department if symptoms worsen or persist or if there are any questions or concerns that arise at home. Response to treatment: the patient's symptoms have markedly improved after treatment. Special discussion: Based on the patient's Hx, exam, and Dx evaluation, there is no indication for emergent surgery or inpatient Tx. It is understood by the patient/guardian that if the Sx's persist or worsen they need to return immediately for re-evaluation. ED course: Discussed labs, imaging with patient. Patient to follow-up with Dr. Fofana 2 to 3 days. Patient understands agrees with plan. All questions were answered. Return precautions discussed include worsening symptoms, or any other concerns. 04/09 08:22 Order name: CBC with Diff; Complete Time: 09:25 ms3 04/09 08:22 Order name: CMP; Complete Time: 09:25 ms3 04/09 08:22 Order name: Lipase; Complete Time: 09:25 ms3 04/09 08:22 Order name: Test, Urine; Complete Time: 09:25 ms3 04/09 08:22 Order name: Urinalysis w/ reflexes; Complete Time: 09:25 ms3 04/09 08:22 Order name: CT Abd/Pelvis - IV Contrast Only; Complete Time: 10:09 ms3 04/09 11:19 Order name: Transvaginal Study Probe; Complete Time: 12:36 EDMS 04/09 08:22 Order name: IV Saline Lock; Complete Time: 08:33 ms3 04/09 08:22 Order name: Labs collected and sent; Complete Time: 08:33 ms3 Administered Medications: 08:46 Drug: NS 0.9% IV 1000 ml IV at 1 bolus Per protocol; 1000 mL bolus Route: IV; Rate: 1 ll1 bolus; Site: left antecubital; 09:29 Follow up: Response: No adverse reaction; IV Status: Completed infusion mb9 08:46 Drug: Ondansetron IVP 4 mg IVP once; over 2 minutes Route: IVP; Site: left antecubital; ll1 09:52 Follow up: Response: No adverse reaction mb9 08:46 Drug: morphine IVP or IV 4 mg IVP once over 4 mins Route: IVP; Infused Over: 4 mins; ll1 Site: left antecubital; 09:52 Follow up: Response: No adverse reaction mb9 09:29 Drug: morphine IVP or IV 4 mg IVP once over 4 mins Route: IVP; Infused Over: 4 mins; mb9 Site: left antecubital; 09:52 Follow up: Response: No adverse reaction mb9 Disposition Summary: 04/09/23 12:50 Discharge Ordered Notes: Location: Home ms3 Condition: Stable ms3 Diagnosis - Lower abdominal pain, unspecified ms3 Followup: ms3 - With: Mariaelena Fofana MD - When: 2 - 3 days - Reason: Recheck today's complaints Discharge Instructions: - Discharge Summary Sheet ms3 - Abdominal Pain, Adult ms3 - Ovarian Cyst, [id number] ms3 Forms: - Medication Reconciliation Form ms3 - Thank You Letter ms3 - Antibiotic Education ms3 - Prescription Opioid Use ms3 - Patient Portal Instructions ms3 - Leadership Thank You Letter ms3 Prescriptions: - Ibuprofen 600 mg Oral Tablet - take 1 tablet ORAL route every 6 hours As needed take with food; 30 tablet; ms3 Refills: 0, Product Selection Permitted Signatures: Dispatcher [employer] EDTiffanie Westbrook, RN RN ll1 Ray Bingham DO DO ms3 Layla Ferrari RN RN mb9 Corrections: (The following items were deleted from the chart) 11:19 10:22 Pelvis Complete+US.RAD.EFRAIN ordered. EDMS EDMS
--- NOTE | 2023-04-09 12:51 | ER ---
Nurse's Notes [facility] Name: Jackie Toth Age: 22 yrs Sex: Female : 2000 Arrival Date: 04/09/2023 Time: 08:06 Bed 13 Private MD: Diagnosis: Lower abdominal pain, unspecified Presentation: 04/09 08:17 Chief complaint: Patient states: RLQ abdominal pain with nausea since 11 PM last night. ll1 Coronavirus screen: Vaccine status: Patient reports being unvaccinated. Client denies travel out of the [place] in the last 14 days. At this time, the client does not indicate any symptoms associated with coronavirus-19. Ebola Screen: Patient denies travel to an Ebola-affected area in the 21 days before illness onset. Initial Sepsis Screen: Does the patient meet any 2 criteria? No. Patient's initial sepsis screen is negative. Does the patient have a suspected source of infection? Yes: Acute abdominal pain. Risk Assessment: Do you want to hurt yourself or someone else? Patient reports no desire to harm self or others. 08:17 Method Of Arrival: Ambulatory ll1 08:17 Acuity: LESTER 3 ll1 Triage Assessment: 08:19 General: Appears in no apparent distress. Behavior is calm, cooperative, appropriate ll1 for age. Pain: Complains of pain in abdomen Pain currently is 8 out of 10 on a pain scale. Quality of pain is described as aching. GI: Reports lower abdominal pain, nausea. Historical: - Allergies: 08:17 PENICILLINS; ll1 - PMHx: 08:17 depressive disorder; Hypercholesterolemia; pseudo tumor cerebri; ll1 - PSHx: 08:17 None; ll1 - Immunization history:: Adult Immunizations up to date. - Social history:: Smoking status: Reported history of juuling and/or vaping. Screenin:21 [facility] ED Fall Risk Assessment (Adult) History of falling in the last 3 months, mb9 including since admission No falls in past 3 months (0 pts) Confusion or Disorientation No (0 pts) Intoxicated or Sedated No (0 pts) Impaired Gait No (0 pts) Mobility Assist Device Used No (0 pt) Altered Elimination Yes (1 pt) Score/Fall Risk Level 0 - 2 = Low Risk Oriented to surroundings, Maintained a safe environment, Educated pt \T\ family on fall prevention, incl call for assistance when getting out of bed. Abuse screen: Denies threats or abuse. Nutritional screening: No deficits noted. Tuberculosis screening: No symptoms or risk factors identified. Assessment: 08:46 Reassessment: No changes from previously documented assessment. Patient and/or family ll1 updated on plan of care and expected duration. Pain level reassessed. Patient is alert, oriented x 3, equal unlabored respirations, skin warm/dry/pink. 09:20 General: Appears uncomfortable, Behavior is cooperative. Pain: Complains of pain in mb9 abdomen Pain radiates to RLQ Pain currently is 8 out of 10 on a pain scale. Quality of pain is described as throbbing, Pain began suddenly, Is continuous, Aggravated by increased activity, repositioning. Neuro: Salgado Agitation-Sedation Scale (RASS): 0 - Alert and Calm Level of Consciousness is awake, alert, obeys commands, Oriented to person, place, time, situation, Appropriate for age. Respiratory: Airway is patent Respiratory effort is even, unlabored, Respiratory pattern is regular, symmetrical. GI: Abdomen is flat, non-distended, Bowel sounds present X 4 quads. Abd is soft Abdomen is tender to palpation in right lower quadrant. Derm: Skin is pink, warm \T\ dry. 09:30 Reassessment: pt taken to CT via wheelchair. mb9 11:21 Reassessment: No changes from previously documented assessment. Patient and/or family mb9 updated on plan of care and expected duration. Pain level reassessed. Patient is alert, oriented x 3, equal unlabored respirations, skin warm/dry/pink. Vital Signs: 08:17 BP 130 / 98; Pulse 90; Resp 16; Temp 98.6; Pulse Ox 100% on R/A; Weight 77.11 kg; ll1 Height 5 ft. 8 in. ; Pain 8/10; 09:20 BP 120 / 79; Pulse 82; Resp 18; Pulse Ox 100% on R/A; mb9 11:21 BP 117 / 84; Pulse 84; Resp 18; Pulse Ox 100% on R/A; mb9 12:52 BP 116 / 74; Pulse 63; Resp 18; Pulse Ox 96% on R/A; me1 08:17 Body Mass Index 25.85 (77.11 kg, 172.72 cm) ll1 08:17 Pain Scale: Adult ll1 ED Course: 08:08 Patient arrived in ED. rg4 08:12 Ray Bingham DO is Attending Physician. ms3 08:17 Arm band placed on Patient placed in an exam room, on a stretcher. ll1 08:19 Triage completed. ll1 08:33 Tiffanie Carvajal, RN is Primary Nurse. ll1 08:37 Initial lab(s) drawn, by id, sent to lab. Inserted saline lock: 20 gauge in left jg11 antecubital area, using aseptic technique. Blood collected. 09:19 Test, Urine Sent. mb9 09:19 Urinalysis w/ reflexes Sent. mb9 09:21 Placed in gown. Bed in low position. Call light in reach. Side rails up X 1. Client mb9 placed on continuous cardiac and pulse oximetry monitoring. NIBP monitoring applied. hospital monitor on. 09:21 No provider procedures requiring assistance completed. mb9 09:29 Primary Nurse role handed off by Tiffanie Carvajal RN mb9 09:29 Layla Ferrari RN is Primary Nurse. mb9 09:40 CT Abd/Pelvis - IV Contrast Only In Process Unspecified. EDMS 12:07 Transvaginal Study Probe In Process Unspecified. EDMS 12:08 Report given to ANDRE Krause. mb9 12:50 Mariaelena Fofana MD is Referral Physician. ms3 13:00 Provided Education on: POC. Verbalized understanding. . me1 13:00 IV discontinued, intact, bleeding controlled, No redness/swelling at site. Pressure me1 dressing applied. Administered Medications: 08:46 Drug: NS 0.9% IV 1000 ml IV at 1 bolus Per protocol; 1000 mL bolus Route: IV; Rate: 1 ll1 bolus; Site: left antecubital; 09:29 Follow up: Response: No adverse reaction; IV Status: Completed infusion mb9 08:46 Drug: Ondansetron IVP 4 mg IVP once; over 2 minutes Route: IVP; Site: left antecubital; ll1 09:52 Follow up: Response: No adverse reaction mb9 08:46 Drug: morphine IVP or IV 4 mg IVP once over 4 mins Route: IVP; Infused Over: 4 mins; ll1 Site: left antecubital; 09:52 Follow up: Response: No adverse reaction mb9 09:29 Drug: morphine IVP or IV 4 mg IVP once over 4 mins Route: IVP; Infused Over: 4 mins; mb9 Site: left antecubital; :52 Follow up: Response: No adverse reaction mb9 Medication: 09:21 VIS not applicable for this client. mb9 Outcome: 12:50 Discharge ordered by MD. ms3 13:00 Discharged to home ambulatory, me1 13:00 Condition: stable 13:00 Discharge instructions given to patient, Instructed on discharge instructions, follow up and referral plans. medication usage, Demonstrated understanding of instructions, follow-up care, medications, Prescriptions given X 1, 13:01 Patient left the ED. me1 Signatures: Dispatcher [employer] EDJessica Alexander rg4 Tiffanie Carvajal, RN RN ll1 Ray Bingham, DO ms3 Layla Ferrari RN RN mb9 Larry Coker ls5 Nelida Lin RN RN me1 Hamilton Alaniz jg11 Corrections: (The following items were deleted from the chart) 08:37 08:33 Initial lab(s) drawn, by me, sent to lab. ls5 ls5 08:37 08:33 Inserted saline lock: 20 gauge in left antecubital area, using aseptic technique. ls5 Blood collected. ls5
[2023-04-09 13:27] VITALS: TEMP 98.6
[2023-04-09 13:40] VITALS: BP 116/74; O2SAT 96
== END ==
LOC: ER 08:06
DX: R10.31 Right lower quadrant pain (principal)
CPT/HCPCS: 36415; 74177; 76830; 80053; 81001; 81025; 83690; 85025; J2405; J7030; Q9967